=== PATIENT | female | born 1980 | race Two or more races ===

== ENCOUNTER 2016-09-05 04:18 | Emergency (ER) | payer BC ==
[2016-09-05 04:31] VITALS: BP 142/82; PULSE 106; TEMP 98.1; BMI 52.4
--- NOTE | 2016-09-05 05:01 | PDOC ---
History of Present Illness - History of Present Illness Initial Comments: 09/05/16 04:56 Patient is a 36 year old female with a history of DM and morbid obesity who presents with palpitations. The patient reports waking up out of sleep in a cold sweat with a sensation of palpitations and a racing heart prompting her visit to the ED today. She states that she has had similar symptoms in the past , but it has never woken her up out of sleep before. She denies any recent travel or sick contacts. She denies any chest pain, SOB, fevers, abdominal pain , changes in bowel movements or urination. <Angel Somers - Last Filed: 09/05/16 06:40> <Nichol Pineda - Last Filed: 09/06/16 03:24> - General Chief Complaint: Palpitations Stated Complaint: S.O.B. Time Seen by Provider: 09/05/16 04:44 Past History - Psycho/Social/Smoking Cessation Hx Suicidal Ideation: No Smoking History: Never smoked Have you smoked in the past 12 months: No Information on smoking cessation initiated: No Hx Alcohol Use: No Drug/Substance Use Hx: No <Angel Somers - Last Filed: 09/05/16 06:40> <Nichol Pineda - Last Filed: 09/06/16 03:24> - Past Medical History Allergies/Adverse Reactions: Allergies Allergy/AdvReac Type Severity Reaction Status Date / Time No Known Allergies Allergy Verified 09/05/16 04:29 Home Medications: Ambulatory Orders Unobtainable [Unobtainable] 09/05/16 Review of Systems - Review of Systems Constitutional: No: Chills, Fever HEENTM: No: Recent change in vision, Nose Congestion Respiratory: No: Cough, Shortness of Breath Cardiac (ROS): Yes: Palpitations. No: Chest Pain, Lightheadedness, Syncope ABD/GI: No: Constipated, Diarrhea, Nausea, Vomiting : No: Burning, Dysuria Integumentary: No: Rash Neurological: No: Headache, Numbness, Tingling, Weakness <Angel Somers - Last Filed: 09/05/16 06:40> *Physical Exam - Vital Signs Last Vital Signs Temp Pulse Resp BP Pulse Ox 98.1 F 106 H 22 142/82 100 09/05/16 04:29 09/05/16 04:29 09/05/16 04:29 09/05/16 04:29 09/05/16 04:29 - Physical Exam Comments: 09/05/16 05:01 General Appearance: Nourished Obese female. No Apparent Distress HEENT: No Pharyngeal Erythema, Tonsillar Exudate, Tonsillar Erythema Respiratory/Chest: Lungs Clear, Normal Breath Sounds. No Crackles, Rales, Rhonchi, Wheezing Cardiovascular: Regular Rhythm, Regular Rate. No Murmur, Gallop/S3, Gallop/S4 Gastrointestinal/Abdominal: Normal Bowel Sounds, Soft. No Guarding, Rebound, Tenderness Extremity: Normal Capillary Refill Integumentary: Normal Color, Dry, Warm Neurologic: Fully Oriented, Alert, Normal Mood/Affect, Normal Response <Angel Somers - Last Filed: 09/05/16 06:40> - Vital Signs Last Vital Signs Temp Pulse Resp BP Pulse Ox 98.1 F 106 H 22 142/82 100 09/05/16 04:29 09/05/16 04:29 09/05/16 04:29 09/05/16 04:29 09/05/16 04:29 <Nichol Pineda - Last Filed: 09/06/16 03:24> ED Treatment Course - LABORATORY CBC & Chemistry Diagram: 09/05/16 04:55 09/05/16 04:55 <Angel Somers - Last Filed: 09/05/16 06:40> - LABORATORY CBC & Chemistry Diagram: 09/05/16 04:55 09/05/16 04:55 - ADDITIONAL ORDERS Additional order review: Laboratory Results 09/05/16 09/05/16 09/05/16 04:55 04:55 04:55 D-Dimer 217 Sodium 137 Potassium 3.7 Chloride 105 Carbon Dioxide 24 Anion Gap 8 BUN 13 Creatinine 0.7 Creat Clearance w eGFR > 60 Random Glucose 210 H Calcium 8.4 L Total Bilirubin 0.4 AST 14 L ALT 28 Alkaline Phosphatase 90 Creatine Kinase 114 Troponin I < 0.02 Total Protein 6.5 Albumin 3.1 L Urine HCG, Qual Negative 09/05/16 04:55 RBC 4.55 MCV 83.3 MCHC 31.7 L RDW 15.6 MPV 9.4 Neutrophils % 53.3 Lymphocytes % 37.4 Monocytes % 7.6 Eosinophils % 0.5 Basophils % 1.2 - RADIOLOGY Radiology Studies Ordered: Category Date Time Status CHEST PA & LAT [RAD] Stat Radiology 09/05/16 05:24 Taken <Nichol Pineda - Last Filed: 09/06/16 03:24> Medical Decision Making - Medical Decision Making 09/05/16 05:03 Patient is a 36 year old female with a history of DM and obesity who presents with palpitations. Differential includes but is not limited to: ACS, PE, arrhythmia, GERD. We will obtain a chest radiograph, EKG, cbc, cmp, d-dimer, and troponin to evaluate. Given her history, presentation, and physical exam, her symptoms were due to an isolated incident of palpitations and cold sweat from sleep, however we will evaluate for more serious pathology. 09/05/16 06:27 Patient's laboratory values are unremarkable. Chest radiograph is preliminary read as unremarkable pending official read. We discussed the results with the patient and are comfortable discharging home. The patient is agreeable with the plan. <Angel Somers - Last Filed: 09/05/16 06:40> *DC/Admit/Observation/Transfer - Discharge Dispostion Admit: No - Attestations Physician Attestion: 09/05/16 06:39 I, Dr. Angel Somers, attest that this document has been prepared under my direction and personally reviewed by me in its entirety. I further attest, that it accurately reflects all work, treatment, procedures and medical decision -making performed by me. <Angel Somers - Last Filed: 09/05/16 06:40> <Nichol Pineda - Last Filed: 09/06/16 03:24> Diagnosis at time of Disposition: Palpitations, Overweight or obesity - Discharge Dispostion Disposition: HOME Condition at time of disposition: Improved - Patient Instructions Printed Discharge Instructions: DI for Palpitations, The Mediterranean Diet and Good Health, Getting to the Heart of a Healthy Diet: Protein-Rich Foods, ' Diet Plate' May Help People With Diabetes Lose Weight Additional Instructions: Please return to the ER if you experience concerning or worsening symptoms. Please follow up with your primary care provider to discuss your ER visit. - Post Discharge Activity Work/School Note: Back to Work
[2016-09-05 05:10] LABS: BASOPHIL 1.2 % (0-2.0); EOSINOPHIL 0.5 % (0-4.5); MCH 26.4 pg (25.7-33.7); MCHC 31.7 g/dl (32.0-36.0); MEAN CELL VOLUME 83.3 fl (80-96); MEAN PLT VOLUME 9.4 fl (7.5-11.1); NEUTROPHILS 53.3 % (42.8-82.8); PLATELET COUNT 194 K/MM3 (134-434); RDW 15.6 % (11.6-15.6); WHITE BLOOD COUNT 8.4 K/mm3 (4.0-10.0)
[2016-09-05 05:51] LABS: GLUCOSE,RANDOM 210 mg/dL (74-106)
[2016-09-05 05:52] LABS: ALBUMIN 3.1 g/dl (3.4-5.0); ANION GAP 8 (8-16); BILIRUBIN,TOTAL 0.4 mg/dL (0.2-1.0); CALCIUM 8.4 mg/dL (8.5-10.1); CO2 24 mmol/L (21-32); CREATININE 0.7 mg/dL (0.55-1.02); SGOT/AST 14 U/L (15-37); TOT PROT 6.5 g/dl (6.4-8.2)
[2016-09-05 05:53] LABS: ALK PHOS 90 U/L (45-117); SGPT/ALT 28 U/L (12-78); TROPONIN I < 0.02 ng/ml (0.00-0.05)
--- NOTE | 2016-09-05 06:25 | PDOC ---
Attending Attestation - Resident Resident Name: Angel Somers - HPI HPI: 09/06/16 03:25 Pt is morbidly obese. No SOB; but she is unable to sleep without waking up; she is also out of shape and deconditioned; states that she wants to make sure that she has no serious pathology. - Physicial Exam PE: 09/06/16 03:27 Morbid obesity; large breasts. Pt is afebrile. Lungs are clear; no wheezing Heart normal. No pitting edema. - Medical Decision Making 09/06/16 03:28 Labs normal; CXR normal, EKG and exam are normal. We discussed lifestyle changes with the patient; diet and exercise options etc. Follow with PMD.
--- NOTE | 2016-09-06 09:19 | EKG ---
Test Reason : Blood Pressure : / mmHG Vent. Rate : 103 BPM Atrial Rate : 103 BPM P-R Int : 166 ms QRS Dur : 076 ms QT Int : 336 ms P-R-T Axes : 032 -02 007 degrees QTc Int : 440 ms POOR DATA QUALITY, INTERPRETATION MAY BE ADVERSELY AFFECTED SINUS TACHYCARDIA OTHERWISE NORMAL ECG NO PREVIOUS ECGS AVAILABLE Confirmed by CESAR TAMEZ, LAITH ([id number]) on 09/06/2016 9:18:25 AM Referred By: Confirmed By:LAITH GUERRERO MD
== END 2016-09-05 07:03 | disposition home or self-care (01) ==
LOC: JER 04:18
DX: R00.2 Palpitations (principal); E66.01 Morbid (severe) obesity due to excess calories; Z68.43 Body mass index [BMI] 50.0-59.9, adult; E11.9 Type 2 diabetes mellitus without complications
CPT/HCPCS: 36415; 71020-TC; 80053; 82550; 84484; 84703; 85025; 85379; 93005; 93010; 99283-25